=== PATIENT | female | born 1960 | race Two or more races ===

== ENCOUNTER 2018-06-30 15:15 | Outpatient (CLI) | payer OTHER ==
[~2018-06-30 15:15] MED LIST: HUMIRA40 MG/0.1; IMURAN50 MG PO; PREDNISONE20 MG; PROTONIX40 MG
== END 2018-06-30 15:18 | disposition home or self-care (01) ==
LOC: MAMO-SONO 15:15 → SONOGRAMA 15:15
DX: M25.511 Pain in right shoulder (principal); M75.41 Impingement syndrome of right shoulder